=== PATIENT | male | born 1960 | race African-American/Black ===

== ENCOUNTER 2020-05-29 12:11 | Emergency (ER) | payer OTHER ==
[~2020-05-29] VITALS: Ht 177.8 cm; Wt 107.0 kg
[~2020-05-29 12:11] MED LIST: HYDR-2679 PO
[2020-05-29] MEDS ORDERED: IV NORMAL SALINE 1000ML BAG 1,000 ML IV SCH (12:35)
--- NOTE | 2020-05-29 12:43 | PHYS DOC ---
Past Medical History Past Medical History: Other Additional Past Medical Histor: BORDERLINE DIABETIC Past Surgical History: Other Additional Past Surgical Histo: BREAST REDUCTION Smoking Status: Never Smoker Alcohol Use: None Drug Use: None General Adult EDM: Chief Complaint: NAUSEA/VOMITING/DIARRHA HPI: HPI: Patient is a 59 year old male who presents with nausea, dry heaves, lack of appetite, cough x 2 weeks. States he has been taking Carm[place] with slight relief. States he took some before coming to ED. Patient denies chest pain, shortness of air, fever, abdominal pain, diarrhea, dizziness, headache, vision changes, numbness or tingling. Denies any pain. Patient has a history of borderline diabetes, hypertension. Review of Systems: Review of Systems: Constitutional: Denies fever or chills. [] Eyes: Denies change in visual acuity. [] HENT: Denies nasal congestion or sore throat. [] Respiratory: +cough or denies shortness of breath. [] Cardiovascular: Denies chest pain or edema. [] GI: Denies abdominal pain. + nausea, + right heaving, +vomiting, + lack of appetite, denies bloody stools or diarrhea. [] : Denies dysuria. [] Musculoskeletal: Denies back pain or joint pain. [] Integument: Denies rash. [] Neurologic: Denies headache, focal weakness or sensory changes. [] Endocrine: Denies polyuria or polydipsia. [] Lymphatic: Denies swollen glands. [] Psychiatric: Denies depression or anxiety. [] Heart Score: Risk Factors: Risk Factors: DM, Current or recent (<one month) smoker, HTN, HLP, family history of CAD, obesity. Risk Scores: Score 0 - 3: 2.5% MACE over next 6 weeks - Discharge Home Score 4 - 6: 20.3% MACE over next 6 weeks - Admit for Clinical Observation Score 7 - 10: 72.7% MACE over next 6 weeks - Early Invasive Strategies Allergies: Allergies: Allergies Coded Allergies Type Severity Reaction Last Updated Verified No Known Drug Allergies 01/18/15 No Physical Exam: PE: Constitutional: Well developed, well nourished, no acute distress, non-toxic appearance. [] HENT: Normocephalic, atraumatic, bilateral external ears normal, oropharynx moist, no oral exudates, nose normal. [] Eyes: PERRLA, EOMI, conjunctiva normal, no discharge. [] Neck: Normal range of motion, no tenderness, supple, no stridor. [] Cardiovascular:Heart rate regular rhythm, no murmur [] Lungs & Thorax: Bilateral upper breath sounds clear and lower diminished to auscultation [] Abdomen: Bowel sounds normal, soft, no tenderness, no masses, no pulsatile masses. [] Skin: Warm, dry, no erythema, no rash. [] Back: No tenderness, no CVA tenderness. [] Extremities: No tenderness, no cyanosis, no clubbing, ROM intact, no edema. [] Neurologic: Alert and oriented X 3, normal motor function, normal sensory function, no focal deficits noted. [] Psychologic: Affect normal, judgement normal, mood normal. [] EKG: EK and read by Dr Shaw as Sinus Rhythm and no STEMI[] Radiology/Procedures: Radiology/Procedures: [] Impression: [place] [address] IMAGING REPORT Signed PATIENT: MARIA LUISA HUFF ACCOUNT: [id number] : 1960 LOCATION: ER AGE: 59 SEX: M EXAM STATUS: REG ER ORD. PHYSICIAN: STEPHANIA DÍAZ APRN REASON: nausea, epigastric discomfort PROCEDURE: PORTABLE CHEST 1V PORTABLE CHEST 1V History: Reason: nausea, epigastric discomfort / Spl. Instructions: / History: Comparison: None. Findings: No consolidation or pleural effusion. Normal heart size. No pneumothorax. Impression: 1. No acute cardiopulmonary process. Electronically signed by: Carlos Sands DO (05/29/2020 1:23 PM) [facility] DICTATED and SIGNED BY: CARLOS SANDS DO DATE: 05/29/[address] [id number] IMAGING REPORT Signed PATIENT: MARIA LUISA HUFF ACCOUNT: [id number] : 1960 LOCATION: ER AGE: 59 SEX: M EXAM STATUS: REG ER ORD. PHYSICIAN: STEPHANIA DÍAZ APRN REASON: NAUSEA, VOMITING PROCEDURE: CT ABD PELV W/ IV CONTRST ONLY EXAM: Abdomen and pelvis CT with intravenous contrast. HISTORY: Nausea and vomiting. TECHNIQUE: Computed tomographic images of the abdomen and pelvis were obtained following the administration of intravenous contrast. Multiplanar reformatting was performed. *One or more of the following individualized dose reduction techniques were utilized for this examination: 1. Automated exposure control. 2. Adjustment of the mA and/or kV according to patient size. 3. Use of iterative reconstruction technique. COMPARISON: None. FINDINGS: Evaluation of the lower thorax demonstrates multifocal groundglass infiltrate throughout the visualized bilateral upper lobes, right middle lobe and lower lobes. There is superimposed posterior dependent and basilar atelectasis. The heart is normal in size. There is a small hiatal hernia. There is a tiny cyst within the hepatic dome. There is no suspicious hepatic lesion. The gallbladder, pancreas, spleen and adrenal glands are unremarkable. There is no hydronephrosis or solid or cystic renal lesion. The bladder is unremarkable. There is no appendicitis. There is no bowel obstruction. There is colonic diverticulosis. There is no evidence of diverticulitis. The aorta is normal in caliber. There is a small fat-containing left inguinal hernia. There is slight stranding within the herniated fat. There is no suspicious osseous lesion. There are degenerative changes involving the lower lumbar spine. IMPRESSION: 1. Colonic diverticulosis, without evidence of diverticulitis. 2. Small fat-containing left inguinal hernia. There is slight stranding within the herniated fat which may be due to a component of fat ischemia/inflammation. 3. Patchy groundglass infiltrate throughout the visualized mid lower lungs. Correlate for pneumonia. 4. Tiny hiatal hernia. 5. Tiny liver cyst. Electronically signed by: Marlen Zabala MD (05/29/2020 2:25 PM) [id number] DICTATED and SIGNED BY: MARLEN ZABALA MD DATE: 05/29/20 1425 Course & Med Decision Making: Course & Med Decision Making Pertinent Labs and Imaging studies reviewed. (See chart for details) COVID-19 CRITERIA: The patient was evaluated during the global COVID-19 pandemic, and that diagnosis was suspected/considered upon their initial presentation. Their evaluation, treatment and testing was consistent with current guidelines for patients who present with complaints or symptoms that may be related to COVID-19. See HPI. Ambulatory with a steady gait. Speaks in full complete sentences. Abdomen is soft and nontender. Vital signs are within normal limits. He is afebrile. Skin pink warm and dry. Lungs are clear in upper lobes and diminishe d in lower lobes. No extremity edema. Chest x-ray shows no acute findings. CT abdomen pelvis shows IMPRESSION: 1. Colonic diverticulosis, without evidence of diverticulitis. 2. Small fat-containing left inguinal hernia. There is slight stranding within the herniated fat which may be due to a component of fat ischemia/inflammation. 3. Patchy groundglass infiltrate throughout the visualized mid lower lungs. Correlate for pneumonia. 4. Tiny hiatal hernia. 5. Tiny liver cyst. Dr. Shaw has gone in and seen this patient and examined him. Patient states that he does not have any problems having a bowel movement and has no diarrhea or abdominal pain. Patient will be treated for possible Covid and pneumonia. I will send him home with nausea medicine, azithromycin, Medrol Dosepak. Dr. Shaw states that the patient can follow-up as outpatient for the hernia. Blood work is unremarkable. Patient's vital signs have remained stable. Lactic acid is normal. He will be referred to a surgeon for the hernia. [] Cristobal Disclaimer: Cristobal Disclaimer: This electronic medical record was generated, in whole or in part, using a voice recognition dictation system. COVID-19 Patient Risks: Age 65 or older: No Sign of co-morbidity: Yes Exp to person + for COVID: No Exp to PUI: No Travel from affected area: No Lower respiratory symptoms: No Fever: No Other: Yes (LACK OF APPETITE, NAUSEA) PPE Use: Full PPE with N95 mask or PAPR: Yes Departure Departure Impression: Primary Impression: Hernia Additional Impressions: Person under investigation for COVID-19 Pneumonia Qualified Codes: J18.9 - Pneumonia, unspecified organism Disposition: 01 DC HOME SELF CARE/HOMELESS Condition: STABLE Referrals: JUDI HANKINS MD (PCP) SHIREEN KHAN MD Patient Instructions: Hernia, Pneumonia, Adult Additional Instructions: Follow up with your primary care and surgeon soon as possible. Take medications as prescribed. Drink plenty of fluids. Take Tylenol or ibuprofen for pain or fever. Return to the ER for respiratory distress or severe chest pain. You have been tested for or diagnosed with COVID-19. It is an infection caused by a new type of coronavirus. COVID-19 will cause cold-like or mild flu symptoms in most. It can cause more severe symptoms like problems breathing in some. There is no treatment for COVID-19. The body will clear the infection over time. Self-care will help to ease discomfort. Steps to Take: Self-Care Rest as needed. Healthy habits may help you feel better. Steps include: Choose healthy foods including fruits and vegetables. Drink water throughout the day. Get plenty of sleep each night. If you smoke, try to quit. It may ease breathing. Avoid alcohol. Keep Others Healthy The virus can spread to others. Droplets are released every time you sneeze or cough. The droplets can get into the mouth, nose, or eyes of people near you and lead to infection. To lower the chances of spreading COVID-19 to others: Stay at home until your doctor has said it is safe to leave. If you tested positive this will mean staying isolated until both of the following are true: At least 7 days have passed since the start of illness. You are free of fever for at least 72 hours without the use of medicine. During this time: - Avoid public areas, events, or transportation. Do not return to work or school until your doctor has said it is safe to do so. - Call ahead if you need to go to a medical center. Let them know you may have COVID-19. It will help them guide you where to go. They may also ask you to wear a facemask when you come to the office. - If you call for emergency medical services, let them know you may have COVID- 19. While at home: - Try to avoid close contact with others. Stay about 6 feet away. - If possible, spend most of your time in a separate room from others. - Use a face mask if you will be in close contact with others such as sharing a room or vehicle. - Have someone wipe down common surfaces in the home. Use household sweat band sewer every day on areas like doorknobs, counters, or sinks. - Cough or sneeze into a tissue. Throw the tissue away right after use. If a tissue is not available, cough or sneeze into your elbow. - Wash your hands often. Wash them after sneezing or coughing. Use soap and water and wash for at least 20 seconds. Alcohol based hand carbonating stone cleaner can be used if soap and water is not available. - Do not prepare food for others. Avoid sharing personal items like forks, spoons, or toothbrushes. - Avoid close contact with pets while you are sick. There is no evidence of the virus passing to pets. This is a safety step until more is known about this virus. Isolation can be frustrating. Social interaction can help. Keep in touch with friends and family through phone and tech options. You can still interact with others in your home, just keep a safe distance of about 6 feet. Follow-up: Your doctors office will check in with you to see if there are any changes in your health. You may be asked to keep track of symptoms to share with them. They will also let you know when you are clear to be in public again. Problems to Look Out For: Contact your doctor if your recovery is not going as you expect. Get emergency care if you have problems such as: - Trouble breathing - Nonstop chest pain or pressure - Changes in awareness, confusion, or problems waking - Lips or face have bluish color - Worsening of symptoms If you think you have an emergency, call for emergency medical services right away. [facility] Azithromycin (AZITHROMYCIN TABLET) 250 Mg Tablet 1 PKG PO UD for 5 Days, #6 TAB 0 Refills 2 the first day followed by 1 for days 2-5 Prov: STEPHANIA DÍAZ BURN TABLE OPERATOR 05/29/20 Albuterol Sulfate (PROAIR HFA INHALER) 8.5 Gm Hfa.aer.ad 1 PUFF INH PRN Q6HRS PRN for SHORTNESS OF BREATH, #1 INHALER 0 Refills Prov: STEPHANIA DÍAZ BURN TABLE OPERATOR 05/29/20 Ondansetron (ONDANSETRON ODT) 4 Mg Tab.rapdis 1 TAB PO PRN Q6-8HRS, #16 TAB Prov: STEPHANIA DÍAZ BURN TABLE OPERATOR 05/29/20 Methylprednisolone (MEDROL) 4 Mg Tab.ds.pk 1 PKG PO UD, #1 PKG Prov: STEPHANIA DÍAZ BURN TABLE OPERATOR 05/29/20 STEPHANIA DÍAZ BURN TABLE OPERATOR May 29, 2020 12:43
[2020-05-29] MEDS ORDERED: FAMOTIDINE 20 MG/2 ML VIAL IVP ONE (12:45)
[2020-05-29] MEDS ORDERED: ONDANSETRON PF 4 MG/2 ML VIAL. IVP ONE (12:45)
[2020-05-29 13:11] LABS: BASO % 0 % (0-3); EOS % 0 % (0-3); HEMATOCRIT 41.3 % (39.0-53.0); HEMOGLOBIN 13.6 g/dL (13.0-17.5); LYMPH # 1.1 x10^3/uL (1.0-4.8); LYMPH % 20 % (24-48); MEAN CORPUSCULAR HEMOGLOBIN 26 pg (25-35); MEAN CORPUSCULAR HGB CONC 33 g/dL (31-37); MEAN CORPUSCULAR VOLUME 80 fL (79-100); MONO # 0.6 x10^3/uL (0.0-1.1); MONO % 11 % (0-9); NEUT # 3.8 x10^3/uL (1.8-7.7); NEUT % 70 % (31-73); PLATELET COUNT 243 x10^3/uL (140-400); RED BLOOD COUNT 5.17 x10^6/uL (4.30-5.70); RED CELL DISTRIBUTION WIDTH 14.4 % (11.5-14.5); WHITE BLOOD COUNT 5.4 x10^3/uL (4.0-11.0)
[2020-05-29 13:19] LABS: PROTHROMBIN TIME PATIENT 13.6 SEC (11.7-14.0)
[2020-05-29 13:20] LABS: CALCIUM 9.1 mg/dL (8.5-10.1); CREATININE 1.5 mg/dL (0.7-1.3); GFR 58.4; POTASSIUM 3.9 mmol/L (3.5-5.1)
[2020-05-29 13:26] LABS: ALBUMIN 3.2 g/dL (3.4-5.0); ALBUMIN/GLOBULIN RATIO 0.7 (1.0-1.7); TOTAL BILIRUBIN 0.4 mg/dL (0.2-1.0); TOTAL PROTEIN 7.9 g/dL (6.4-8.2)
--- NOTE | 2020-05-29 13:26 | RAD ---
PORTABLE CHEST 1V History: Reason: nausea, epigastric discomfort / Spl. Instructions: / History: Comparison: None. Findings: No consolidation or pleural effusion. Normal heart size. No pneumothorax. Impression: 1. No acute cardiopulmonary process. Electronically signed by: Carlos Sands DO (05/29/2020 1:23 PM) [facility]
[2020-05-29] MEDS ORDERED: IOHEXOL 300 MG/ML 100ML VIAL. IV ONE (14:00)
--- NOTE | 2020-05-29 14:27 | RAD ---
EXAM: Abdomen and pelvis CT with intravenous contrast. HISTORY: Nausea and vomiting. TECHNIQUE: Computed tomographic images of the abdomen and pelvis were obtained following the administration of intravenous contrast. Multiplanar reformatting was performed. *One or more of the following individualized dose reduction techniques were utilized for this examination: 1. Automated exposure control. 2. Adjustment of the mA and/or kV according to patient size. 3. Use of iterative reconstruction technique. COMPARISON: None. FINDINGS: Evaluation of the lower thorax demonstrates multifocal groundglass infiltrate throughout the visualized bilateral upper lobes, right middle lobe and lower lobes. There is superimposed posterior dependent and basilar atelectasis. The heart is normal in size. There is a small hiatal hernia. There is a tiny cyst within the hepatic dome. There is no suspicious hepatic lesion. The gallbladder, pancreas, spleen and adrenal glands are unremarkable. There is no hydronephrosis or solid or cystic renal lesion. The bladder is unremarkable. There is no appendicitis. There is no bowel obstruction. There is colonic diverticulosis. There is no evidence of diverticulitis. The aorta is normal in caliber. There is a small fat-containing left inguinal hernia. There is slight stranding within the herniated fat. There is no suspicious osseous lesion. There are degenerative changes involving the lower lumbar spine. IMPRESSION: 1. Colonic diverticulosis, without evidence of diverticulitis. 2. Small fat-containing left inguinal hernia. There is slight stranding within the herniated fat which may be due to a component of fat ischemia/inflammation. 3. Patchy groundglass infiltrate throughout the visualized mid lower lungs. Correlate for pneumonia. 4. Tiny hiatal hernia. 5. Tiny liver cyst. Electronically signed by: Marlen Mack MD (05/29/2020 2:25 PM) [id number]
[2020-05-29 14:37] LABS: BILIRUBIN,URINE NEGATIVE (NEG); CLARITY,URINE CLEAR; COLOR,URINE YELLOW; NITRITE,URINE NEGATIVE (NEG); PROTEIN,URINE NEGATIVE (NEG-TRACE)
[2020-05-29] MEDS ORDERED: IV NORMAL SALINE 1000ML BAG 1,000 ML IV ONE (14:45)
[2020-05-29 15:01] LABS: BACTERIA,URINE 0 /HPF (0-FEW); RBC,URINE 0 /HPF (0-2); WBC,URINE OCC /HPF (0-4)
[2020-05-29] MEDS ORDERED: ONDA4TAB12 PO (16:24)
[2020-05-29] MEDS ORDERED: AZIT250T6 PO (16:24)
[2020-05-29] MEDS ORDERED: METH4TAB2 PO (16:24)
[2020-05-29] MEDS ORDERED: ALBU2.5V8 INH (16:24)
--- NOTE | 2020-05-29 16:29 | EKG ---
[facility] [address] [place] [id number] Test Date: 2020-05-29 Test Time: 12:53:23 Pat Name: MARIA LUISA HUFF Department: Room: Gender: M [employer]ester: : 1960 Requested By: STEPHANIA DÍAZ Order Number: [id number] Reading MD: Art Hernandes Measurements Intervals [place] Rate: 93 P: 55 VT: 162 QRS: 35 QRSD: 86 T: 22 QT: 346 QTc: 433 Interpretive Statements SINUS RHYTHM Electronically Signed On 05-30-2020 9:21:29 SPREADER by Art Hernandes
[2020-05-29 17:10] VITALS: BP 119/74
--- NOTE | 2020-05-31 09:26 | NUR ---
IP: Informed pt of positive COVID test and need to self quarantine for 10-14 days pending symptoms. Pt verbalized understanding.
== END 2020-05-29 17:25 | disposition home or self-care (01) ==
LOC: ER 12:11
DX: U07.1 COVID-19 (principal); K40.90 Unilateral inguinal hernia, without obstruction or gangrene, not specified as recurrent; J18.9 Pneumonia, unspecified organism; R11.2 Nausea with vomiting, unspecified; R05 Cough; R63.0 Anorexia; Z98.890 Other specified postprocedural states
CPT/HCPCS: 36415; 71045; 74177; 80053; 81001; 83605; 83690; 84484; 85025; 85610; 87040; 93005; 96361; 96374; 96375; 99285; C9803; J2405; J3490; J7030; Q9967; U0003

== ENCOUNTER → 2020-07-17 | Outpatient (CLI) | payer OTHER ==
[~2020-07-17] MED LIST changes: +ALBU2.5V8 INH; +AZIT250T6 PO; +METH4TAB2 PO; +ONDA4TAB12 PO
--- NOTE | 2020-07-17 17:20 | RAD ---
Exam: CT of chest without contrast INDICATION: Lung mass TECHNIQUE: Sequential axial images through the chest obtained without IV contrast. Sagittal and coron al reformatted images were reconstructed from the axial data and reviewed. Comparisons: None FINDINGS: Visualized portions of the thyroid are unremarkable. No enlarged mediastinal lymph nodes are identifi ed. Heart size is normal. No pericardial effusion. Thoracic aorta has a normal course and caliber. Pulmon riky artery is not enlarged. Airways are patent. No consolidation or pneumothorax. No suspicious lung nodules. No pleural effusion or thickening. Small hiatal hernia. No suspicious osseous lesions or acute fractures. IMPRESSION: 1. No acute processes identified within the chest. No suspicious lung nodules. 2. Small hiatal hernia. Exposure: One or more of the following in the visualized dose reduction techniques were utilized for this examination: 1. Automated exposure control 2. Adjustment of the MA and/or KV according to patient size 3. Use of iterative of reconstructive technique Electronically signed by: Dalia Cruz MD (07/17/2020 5:18 PM) [facility]
== END ==
LOC: CT 14:53
PROVIDERS: ATTEND Family Medicine
DX: R91.8 Other nonspecific abnormal finding of lung field (principal); K44.9 Diaphragmatic hernia without obstruction or gangrene
CPT/HCPCS: 71250